=== PATIENT | male | born 1960 | race Caucasian/White ===

== ENCOUNTER 2017-04-23 13:00 | Outpatient (CLI) | payer BC | END 2017-04-23 17:00 | disposition home or self-care (01) | LOC: PTMAIN 13:00 | PROVIDERS: ATTEND Otolaryngology | DX: J37.0 Chronic laryngitis (principal) | CPT/HCPCS: 31579 ==

== ENCOUNTER → 2017-05-26 | Outpatient (CLI) | payer BC ==
--- NOTE | 2017-05-27 10:03 | CT ---
EXAMINATION TYPE: CT chest wo con DATE OF EXAM: 05/26/2017 COMPARISON: NONE HISTORY: Cough for 3-[address] DLP: 794.3 mGycm, Automated exposure control for dose reduction was used. CONTRAST: None TECHNIQUE: Axial images were obtained at 1 mm thick sections at 10 mm intervals. This will limit po rtions of the examination which may not be visualized within the [id number]. Images were obtained in the prone and supine views. FINDINGS: Thyroid is limited evaluation. No suspicious lung nodules or focal infiltrates are present. No enlarged mediastinal or hilar adenopathy is evident. There are couple of small mediastinal lymph nodes present. The ascending aorta diameter at the level of the main pulmonary artery is 4.1 cm. The main pulmonary artery diameter at the bifurcation is 3.0 cm. Coronary artery calcifications present. Limited CT sections are obtained through the upper abdomen. Abdomen is essentially unremarkable. IMPRESSIONS: 1. No suspicious lung findings 2. Ascending thoracic aortic aneurysm of 4.1 cm. IMPRESSIONS: 1. Normal Chest CT.
== END ==
LOC: RADCTMAIN 17:30
PROVIDERS: ATTEND Internal Medicine
DX: J84.9 Interstitial pulmonary disease, unspecified (principal)
CPT/HCPCS: 71250

== ENCOUNTER → 2018-06-15 | Outpatient (CLI) | payer BC ==
[2018-06-15 11:01] LABS: Blood Urea Nitrogen 14 mg/dL (9-20)
--- NOTE | 2018-06-15 13:31 | CT ---
EXAMINATION TYPE: CT chest w con DATE OF EXAM: 06/15/2018 COMPARISON: 05/26/2017 HISTORY: interstitial lung disease CT DLP: 286.9 mGycm, Automated exposure control for dose reduction was used. CONTRAST: Performed injected with 100 mL of Isovue 300. TECHNIQUE: Axial images were obtained at 5 mm thick sections. Reconstructed images are reviewed on [employer] computer in the coronal plane. FINDINGS: Portion of the thyroid visualized is normal. No suspicious lung nodules or focal infiltrates are present. No enlarged mediastinal or hilar adenopathy is evident. The ascending aorta diameter at the level o f the main pulmonary artery is 3.9 cm. This was previously measured at 4.1 cm. The main pulmonary art clive diameter at the bifurcation is 2.9 cm. There is likely coronary artery calcification present. Limited CT sections are obtained through the upper abdomen. Abdomen is essentially unremarkable. IMPRESSIONS: 1. No acute pulmonary process. 2. The prominent ascending thoracic aorta is essentially stable or slightly smaller in size from comp arison.
== END | disposition home or self-care (01) ==
LOC: RADCTMAIN 10:18
PROVIDERS: ATTEND Internal Medicine
DX: J84.9 Interstitial pulmonary disease, unspecified (principal)
CPT/HCPCS: 82565; 84520; 71260; Q9967

== ENCOUNTER → 2018-12-30 | Outpatient (CLI) | payer OTHER ==
[2018-12-30 06:52] LABS: Blood Urea Nitrogen 17 mg/dL (9-20)
--- NOTE | 2018-12-30 18:01 | CT ---
CT CHEST FOR PULMONARY EMBOLISM. EXAMINATION TYPE: CT angio chest DATE OF EXAM: 12/30/2018 INDICATION: Thoracic aortic aneurysm without rupture CT DLP: 228.7 mGycm, Automated exposure control for dose reduction was used. CONTRAST: Patient injected with 100 mL of Isovue 370. COMPARISON: 06/15/2018 TECHNIQUE: CT of the chest is performed on a spiral scan at 2 mm thick sections. Study is performed with intravenous contrast timed for evaluation for pulmonary embolism. This will limit additional po rtions of the evaluation. 3-D MIP images reconstructed by the technologist are reviewed on the compu ter in the coronal and sagittal planes. FINDINGS: No mediastinal or hilar adenopathy enlarged by CT criteria is evident. The ascending aorta diameter at the level of the main pulmonary artery is 3.8 cm. The main pulmonary artery diameter at the bifur cation is 2.6 cm. No suspicious coronary artery calcification is evident. Aorta at the aortic root is 3.1 cm. The ascending thoracic aorta at the level of main pulmonary arter y is 3.8 cm. The aorta at the aortic arch is a transverse dimension of 2.7 cm. The descending thoraci c aorta tapers normally through its visualized course. Aorta at the diaphragm measures 2.3 cm. No dis section is evident. Lung windows are clear. Limited CT section through the upper abdomen are unremarkable. IMPRESSIONS: 1. Stable appearance of mild fusiform prominence of the ascending thoracic aorta. Maximum AP diameter is 3.8 cm on the current examination. This previously measured 3.9 cm.
== END | disposition home or self-care (01) ==
LOC: RADCTMAIN 06:03
PROVIDERS: ATTEND Thoracic Surgery (Cardiothoracic Vascular Surgery)
DX: I71.2 Thoracic aortic aneurysm, without rupture (principal)
CPT/HCPCS: 82565; 84520; 71275; 36415; Q9967

== ENCOUNTER → 2020-02-03 | Outpatient (CLI) | payer OTHER ==
[2020-02-03 11:42] LABS: African American GFR (CKD) >90 (>60 ml/min/1.73 sqM); Blood Urea Nitrogen 12 mg/dL (9-20); Non-African American GFR(CKD) >90 (>60 ml/min/1.73 sqM)
--- NOTE | 2020-02-03 14:28 | CT ---
EXAMINATION TYPE: CT angio chest DATE OF EXAM: 02/03/2020 COMPARISON: 12/30/2018 HISTORY: 59-year-old male Thoracic aortic aneurysm TECHNIQUE: Contiguous axial scanning of the chest performed without and with IV Contrast, patient inj ected with 100 ml mL of Isovue 370. Coronal/sagittal MIP reconstructions performed. 3-D reconstructio ns generated on a dedicated independent workstation. CT DLP: 719 mGycm Automated exposure control for dose reduction was used. FINDINGS: Heart normal size without pericardial effusion. Coronary vessel calcifications are present. Aortic root borderline ectatic at 3.5 cm. Ascending aorta is borderline aneurysmal at 3.9 cm, unchanged. Conventional arch vessel branching anatomy. Upper descending thoracic aorta borderline ectatic at 3.0 cm. Initial noncontrast images show no evidence for acute intramural hematoma. Mild emphysematous change of the upper lungs. No consolidation or pleural effusion Tiny hiatal hernia. Otherwise, the visualized upper abdomen shows no gross abnormality. Bones: No osseous destructive process. IMPRESSION: STABLE BORDERLINE ANEURYSM ASCENDING AORTA AT 3.9 CM. COPD WITH MILD EMPHYSEMA. CAD.
== END | disposition home or self-care (01) ==
LOC: RADCTMAIN 10:15
PROVIDERS: ATTEND Thoracic Surgery (Cardiothoracic Vascular Surgery)
DX: I25.10 Atherosclerotic heart disease of native coronary artery without angina pectoris (principal); I71.2 Thoracic aortic aneurysm, without rupture
CPT/HCPCS: 82565; 84520; 71275; 36415; Q9967

== ENCOUNTER → 2021-02-08 | Outpatient (CLI) | payer OTHER ==
[2021-02-08 08:28] LABS: African American GFR (CKD) >90 (>60 ml/min/1.73 sqM); Blood Urea Nitrogen 16 mg/dL (9-20); Non-African American GFR(CKD) 85 (>60 ml/min/1.73 sqM)
--- NOTE | 2021-02-08 17:56 | CT ---
CT CHEST FOR PULMONARY EMBOLISM. EXAMINATION TYPE: CT angio chest DATE OF EXAM: 02/08/2021 INDICATION: Thoracic aneurysm CT DLP: 535.8 mGycm, Automated exposure control for dose reduction was used. CONTRAST: Patient injected with 100 ml mL of Isovue 370. COMPARISON: TECHNIQUE: CT of the chest is performed on a spiral scan at 2 mm thick sections. Study is performed with intravenous contrast timed for evaluation for pulmonary embolism. This will limit additional po rtions of the evaluation. 3-D MIP images reconstructed by the technologist are reviewed on the compu ter in the coronal and sagittal planes. FINDINGS: No persistent filling defects are evident to suggest an acute pulmonary embolism. No mediastinal or hilar adenopathy enlarged by CT criteria is evident. There is scattered small left axillary lymph nodes present. The ascending aorta diameter at the level of the main pulmonary artery is 3.9 cm. The main pulmonary artery diameter at the bifurcation is 2.9 cm. The aortic root measures 3.5 cm. The ascending thoracic aorta at the main pulmonary artery is 3.9 cm. Transverse dimension thoracic aorta at the aortic arch is 2.7 cm. The descending thoracic aorta at t he diaphragm is 2.3 cm. No dissection is evident. There is a subtle 0.5 cm peripheral based left upper lobe nodule. Series 5 image 11. In retrospect th is very subtly may have been present on the 02/03/2020 exam and likely present in 06/15/2018. This is b negrita visualized currently. No obvious enlargement however. Limited CT section through the upper abdomen are unremarkable. IMPRESSIONS: 1. There is a stable 3.9 cm ascending thoracic aorta. No enlarging aortic caliber. 2. 0.5 cm left upper lobe peripheral nodule. Follow-up CT chest in 6 months is recommended.
== END | disposition home or self-care (01) ==
LOC: RADCTMAIN 07:39
PROVIDERS: ATTEND Thoracic Surgery (Cardiothoracic Vascular Surgery)
DX: I71.2 Thoracic aortic aneurysm, without rupture (principal); R91.1 Solitary pulmonary nodule
CPT/HCPCS: 82565; 84520; 71275; 36415; Q9967

== ENCOUNTER → 2021-08-24 | Outpatient (CLI) | payer OTHER ==
[2021-08-24 07:35] LABS: African American GFR (CKD) >90 (>60 ml/min/1.73 sqM); Blood Urea Nitrogen 19 mg/dL (9-20); Non-African American GFR(CKD) 81 (>60 ml/min/1.73 sqM)
--- NOTE | 2021-08-24 09:20 | CT ---
EXAMINATION TYPE: CT angio chest DATE OF EXAM: 08/24/2021 8:47 AM COMPARISON: 02/08/2021 HISTORY: Thoracic aortic aneurysm CT DLP: 749 mGycm Automated exposure control for dose reduction was used. CONTRAST: CTA scan of the thorax is performed without and with IV Contrast, patient injected with 100 ml mL of Isovue 370, pulmonary embolism protocol. 3-D MIP images reconstructed by the technologist are review ed on the computer in the coronal and sagittal planes. . FINDINGS: LUNGS: Emphysematous changes are noted. No consolidation, pleural effusion or pneumothorax. No inters titial edema. No sizable pulmonary nodule. MEDIASTINUM: Coronary artery calcification again noted. Heart size is stable. Aorta measures 4 cm in maximal dimension within the ascending aorta and appears similar to the prior exam. Descending thorac ic aorta of normal caliber. OTHER: Mild hypertrophic change of the spine. Small hiatal hernia noted. IMPRESSION: 1. Mild aneurysmal dilation of the ascending aorta measuring 4 cm and previously measuring 3.9 cm. 2. Coronary artery calcification. 3. COPD
== END | disposition home or self-care (01) ==
LOC: RADCTMAIN 06:44
PROVIDERS: ATTEND Thoracic Surgery (Cardiothoracic Vascular Surgery)
DX: I71.2 Thoracic aortic aneurysm, without rupture (principal)
CPT/HCPCS: 82565; 84520; 71275; 36415; Q9967

== ENCOUNTER → 2022-08-26 | Outpatient (CLI) | payer OTHER ==
[2022-08-26 08:13] LABS: African American GFR (CKD) >90 (>60 ml/min/1.73 sqM); Blood Urea Nitrogen 15 mg/dL (9-20); Non-African American GFR(CKD) >90 (>60 ml/min/1.73 sqM)
--- NOTE | 2022-08-26 09:53 | CT ---
CT CHEST FOR PULMONARY EMBOLISM. EXAMINATION TYPE: CT angio chest DATE OF EXAM: 08/26/2022 INDICATION: thoracic aneurysm CT DLP: 606.6 mGycm, Automated exposure control for dose reduction was used. CONTRAST: Patient injected with 100 mL of Isovue 370. COMPARISON: 08/24/2021 TECHNIQUE: CT of the chest is performed on a spiral scan at 2 mm thick sections. Study is performed with intravenous contrast timed for evaluation for pulmonary embolism. This will limit additional po rtions of the evaluation. 3-D MIP images reconstructed by the technologist are reviewed on the compu ter in the coronal and sagittal planes. FINDINGS: No persistent filling defects are evident to suggest an acute pulmonary embolism. No mediastinal or hilar adenopathy enlarged by CT criteria is evident. The ascending aorta diameter at the level of the main pulmonary artery is 4.0 cm. The main pulmonary artery diameter at the bifur cation is 2.8 cm. Moderate coronary artery calcification is present. Aorta otherwise tapers through i ts course. Lung windows are clear. Limited CT section through the upper abdomen are unremarkable. IMPRESSIONS: 1. Stable appearance ascending thoracic aortic aneurysm are 4.0 cm.
== END | disposition home or self-care (01) ==
LOC: RADCTMAIN 07:31
PROVIDERS: ATTEND Thoracic Surgery (Cardiothoracic Vascular Surgery)
DX: Z01.89 Encounter for other specified special examinations (principal); I71.21 Aneurysm of the ascending aorta, without rupture; I71.20 Thoracic aortic aneurysm, without rupture, unspecified
CPT/HCPCS: 82565; 84520; 71275; 36415; Q9967

== ENCOUNTER → 2023-08-29 | Outpatient (CLI) | payer OTHER ==
[2023-08-29 08:24] LABS: African American GFR (CKD) >90 (>60 ml/min/1.73 sqM); Blood Urea Nitrogen 17 mg/dL (9-20); Non-African American GFR(CKD) >90 (>60 ml/min/1.73 sqM)
--- NOTE | 2023-08-29 10:19 | CT ---
Exam: CT Angiography of the Chest. Date: 08/29/2023. Comparison: Multiple previous with the most recent from 08/26/2022. History: Follow-up for ascending thoracic aortic aneurysm. Technique: CT examination of the chest was performed following the intravenous administration of 100 mL of Isovue-370. [address] dose lowering techniques were used, to include: automated exposure control, adju stment for patient size, and/or use of iterative reconstruction. FINDINGS: Mediastinum and Teresita: There is no axillary, mediastinal or hilar lymphadenopathy. Pleural and Pericardial spaces: There are no pleural or pericardial effusions. Upper Abdomen: The visualized upper abdomen is unremarkable. Cardiovascular: There is no significant change in the dilation of the ascending thoracic aorta measur ing up to 4 cm in diameter. There is no evidence of aortic dissection. This was measured at the level of the main pulmonary artery. There are mild to moderate patchy coronary artery calcifications. Pulm onary Artery: There are no filling defects in the pulmonary arteries. Lung Parenchyma and Airways: The lungs are clear. Bones: No fracture or aggressive osseous lesion. IMPRESSION: 1. Age dilation of the ascending thoracic aorta measuring up to 4 cm. 2. No evidence of aortic dissection 3. No evidence of pneumonia, pleural or pericardial effusions. 4. Coronary artery calcification.
== END | disposition home or self-care (01) ==
LOC: RADCTMAIN 07:37
PROVIDERS: ATTEND Thoracic Surgery (Cardiothoracic Vascular Surgery)
DX: I71.21 Aneurysm of the ascending aorta, without rupture (principal); I25.10 Atherosclerotic heart disease of native coronary artery without angina pectoris
CPT/HCPCS: 82565; 84520; 71275; 36415; Q9967

== ENCOUNTER → 2024-08-31 | Outpatient (CLI) | payer BC ==
[2024-08-31 09:30] LABS: Blood Urea Nitrogen 21 mg/dL (9-20)
[2024-08-31 09:31] LABS: African American GFR (CKD) >90 (>60 ml/min/1.73 sqM); Non-African American GFR(CKD) 89 (>60 ml/min/1.73 sqM)
--- NOTE | 2024-08-31 11:10 | CT ---
EXAMINATION TYPE: CT angio chest CT DLP: 735 mGycm, Automated exposure control for dose reduction was used. DATE OF EXAM: 08/31/2024 10:49 AM COMPARISON: Multiple CTA Chest with most recent 08/19/2023 CLINICAL INDICATION:Male, 64 years old with history of I71.21 ANEURYSM OF THE ASCENDING AORTA; Thorac ic aortic aneurysm w/o rupture routine follow up TECHNIQUE/CONTRAST: CTA scan of the thorax is performed without and with IV Contrast, patient injected with 100 mL of Iso meghann 370. 3D reconstructed images are created on an independent workstation and reviewed.. FINDINGS: Lungs/Pleura: No evidence of focal consolidation, pleural effusion or pneumothorax. Biapical pleuropa renchymal scarring with right apical paraseptal emphysematous change. Airway: Large airways are patent. Heart: Heart is within normal limits for size. Trace pericardial effusion. Moderate coronary arterial calcifications. Vasculature: Conventional three-vessel aortic arch. No evidence of intramural hematoma or dissection. Stable aneurysm dilatation of the ascending thoracic aorta measuring up to 4.1 cm. The aortic root m easures up to 3.6 cm. The descending thoracic aorta measures up to 2.7 cm. The visualized branches of the aorta are widely patent. Mediastinum: No evidence of adenopathy. Musculoskeletal: No acute osseous abnormalities Soft Tissues: Minimal bilateral gynecomastia. Lower neck: No significant findings. Upper Abdomen: Small hiatal hernia. IMPRESSION: Stable aneurysm dilatation of the ascending thoracic aorta measuring up to 4.1 cm. No evidence for in tramural hematoma or dissection. [facility], , 08/31/2024 11:08 AM
== END | disposition home or self-care (01) ==
LOC: RADCTMAIN 08:50
PROVIDERS: ATTEND Thoracic Surgery (Cardiothoracic Vascular Surgery)
DX: I71.21 Aneurysm of the ascending aorta, without rupture (principal); Z01.89 Encounter for other specified special examinations
CPT/HCPCS: 82565; 84520; 71275; 36415; Q9967